=== PATIENT | male | born 1995 | race Caucasian/White ===

== ENCOUNTER 2016-10-12 12:56 | Emergency (ER) | payer BC ==
[2016-10-12 13:29] VITALS: BP 136/73
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
--- NOTE | 2016-10-12 15:32 | CR ---
Right ankle: Four views of the right ankle were obtained. Comparison: No previous right ankle study. Ankle mortise is symmetric. No fracture, dislocation or other bony abnormality is seen. Impression: 1. No abnormality is identified on right ankle exam. Diagnostic code #1
== END 2016-10-12 15:14 | disposition home or self-care (01) ==
LOC: JD.ED 12:56
DX: S86.011A Strain of right Achilles tendon, initial encounter (principal); Z90.49 Acquired absence of other specified parts of digestive tract; V29.9XXA Motorcycle rider (driver) (passenger) injured in unspecified traffic accident, initial encounter
CPT/HCPCS: 73610-26-RT; 73610-RT; 99283